=== PATIENT | male | born 1950 | race Caucasian/White ===

== ENCOUNTER → 2024-07-02 | Outpatient (CLI) | payer MEDICARE ==
[2024-07-02 15:39] LABS: ALT 20 U/L (10-49); AST 21 U/L (14-35); Albumin 4.5 g/dL (3.8-4.9); Alkaline Phosphatase 52 U/L (41-126); Blood Urea Nitrogen 18.4 mg/dL (9.0-27.0); Calcium 9.5 mg/dL (8.7-10.3); Carbon Dioxide 27.4 mmol/L (21.6-31.8); Chloride 102 mmol/L (96-109); Chol/HDL Ratio 4.35 Ratio; Globulin 2.5 g/dL (1.6-3.3); Glucose 126 mg/dL (70-110); LDL Cholesterol,Calculated 89.4 mg/dL (0.0-131.0); Potassium 4.1 mmol/L (3.5-5.5); Prostate Specific Antigen 1.63 ng/mL (0.000-6.500); Sodium 140 mmol/L (135-145); Total Bilirubin 0.5 mg/dL (0.3-1.2)
[2024-07-02 15:56] LABS: Appearance,Urine Clear (Clear); Bilirubin,Urine Negative (Negative); Blood,Urine Negative (Negative); Color,Urine Yellow (Yellow); Ketones,Urine Negative (Negative); Nitrite,Urine Negative (Negative); PH, Urine 7.5; Specific Gravity,Urine 1.011 (1.001-1.030); Urobilinogen,Urine 0.2 E.U./DL
[2024-07-02 17:00] LABS: HCT 40.7 % (39.6-50.0); HGB 13.2 g/dL (13.0-17.0); MCH 28.7 pg (27.0-32.0); MCHC 32.4 g/dL (32.0-37.0); MCV 88.5 FL (80.0-97.0); Mean Platelet Volume 10.6 FL (9.5-12.2); NRBC Per 100 WBC 0 X 10*3/uL (0.00-0.01); Platelet Count 216 X 10*3/uL (140-440); WBC 5.94 X 10*3/uL (4.50-10.00)
[2024-07-02 20:18] LABS: Urine Creatinine 43.3 mg/dL (39.0-259.0)
== END | disposition home or self-care (01) ==
LOC: LABWHC1 08:22
PROVIDERS: ATTEND Family Medicine
DX: I10 Essential (primary) hypertension (principal); E11.65 Type 2 diabetes mellitus with hyperglycemia; E78.5 Hyperlipidemia, unspecified; N40.0 Benign prostatic hyperplasia without lower urinary tract symptoms
CPT/HCPCS: 36415; 80053; 80061; 81003; 82043; 82570; 83036; 84153; 85027